=== PATIENT | female | born 1965 | race Two or more races ===

== ENCOUNTER 2019-02-17 12:24 | Emergency (ER) | payer SELFPAY ==
[~2019-02-17] VITALS: Ht 165.1 cm; Wt 87.3 kg
[2019-02-17 12:36] VITALS: BP 174/103; Ht 165.1 cm; Wt 87.3 kg
== END 2019-02-17 15:11 | disposition home or self-care (01) ==
LOC: ED 12:24
DX: I10 Essential (primary) hypertension (principal)